=== PATIENT | female | born 1975 | race Caucasian/White ===

== ENCOUNTER 2016-10-24 14:25 | Emergency (ER) | payer BC ==
[~2016-10-24] VITALS: Ht 170.2 cm; Wt 170.9 kg
[~2016-10-24 14:25] MED LIST: ACETADOTE IV; ADVAIR 250/501 DISK IH; Advair 250/50 Diskus IH; Aleve PO; BROVANA NEB; BROVANA15 MCG/2 M IH; CYCLOBENZAPRINE10 MG PO; Cardizem CD,Cartia X PO; Ceftin PO; DALIRESP500 MCG PO; EPIPEN ADU0.3 MG/0.3 IM; KETOCONAZOLE60 GM TP; METOLAZONE2.5 MG PO; METOPROLOL SUCC25 MG PO; Mucomyst,Mucosol 20% IH; NASONEX17 GM BOTH NARES; OMEPRAZOLE20 M2 PO; PEPCID40 MG PO; POTASSIUM CHLO20 ME1 PO; POTASSIUM CHLO20 ME2 PO; PREDNISONE10 MG PO; PROAIR HFA8.5 GM IH; PROBIOTIC1 EAC1 PO; PROVENTIL,2.5 MG/3 M IH; PriLOSEC PO; Proair HFA IH; SINGULAIR10 MG PO; SPIRIVA1 INHALATI IH; SPIRONOLACTONE50 MG PO; THERAGRAN1 TABLET PO; TORSEMIDE10 MG PO; TUDORZA PRESS400 MCG IH; TYLENOL EXTRA500 MG PO; Tussionex Pennkineti PO; Tylenol PM PO; Tylenol Regular Stre PO; XOPENEX1.25 MG/3 IH; ZYRTEC10 M2 PO; ZYRTEC10 M3 PO; ZZZQUIL50 MG/30 M PO; ZyrTEC PO; [UNRECOGNIZED DRUG - OTHER] PO; predniSONE PO
[2016-10-24] MEDS ORDERED: FLEXERIL10 MG PO (16:55)
[2016-10-24] MEDS ORDERED: PREDNISONE10 MG PO (16:55)
[2016-10-24] MEDS ORDERED: ROBITUSSIN NIG118 ML PO (16:55)
[2016-10-24] MEDS ORDERED: TESSALON200 MG PO (16:55)
[2016-10-24] MEDS ORDERED: MUCUS ER600 MG PO (16:55)
[2016-10-24 18:37] VITALS: BP 151/87
== END 2016-10-24 18:37 | disposition home or self-care (01) ==
LOC: EME 14:25
DX: J45.901 Unspecified asthma with (acute) exacerbation (principal); J06.9 Acute upper respiratory infection, unspecified; J30.2 Other seasonal allergic rhinitis; J44.9 Chronic obstructive pulmonary disease, unspecified; G47.30 Sleep apnea, unspecified; K21.9 Gastro-esophageal reflux disease without esophagitis
CPT/HCPCS: 71020; 94640; 99281; 99284; J7512

== ENCOUNTER 2017-02-23 09:13 | Emergency (ER) | payer BC ==
[~2017-02-23] VITALS: Ht 170.2 cm; Wt 175.0 kg
[~2017-02-23 09:13] MED LIST changes: +FLEXERIL10 MG PO; +MUCUS ER600 MG PO; +ROBITUSSIN NIG118 ML PO; +TESSALON200 MG PO
[2017-02-23 13:54] LABS: EOSINOPHIL (%) 0.3 % (0-5); HEMATOCRIT 39.6 % (36.0-46.0); IMMATURE GRANULOCYTE (%) 0.4 % (0.0-0.7); INSTRUMENT ABS NEUTROPHIL CT 8.1 K/uL; LYMPHOCYTE COUNT 1.4 K/uL (1.0-2.8); MCH 30.7 PG (29.0-34.0); MCHC 32.3 G/DL (30.0-36.0); MEAN PLAT.VOLUME 9.9 uM^3 (9.5-12.4); MONOCYTE (%) 6.1 % (3-12); MONOCYTE COUNT 0.6 K/uL (0-0.8); NEUTROPHIL (%) 79.2 % (45-76); NEUTROPHIL COUNT 8.1 K/uL (1.8-6.4); PLATELET COUNT 233 K/uL (156-360); RBC DIS.WIDTH-CV 14.7 % (11.8-14.6); RBC DIS.WIDTH-SD 51.3 % (39-53); RED BLOOD COUNT 4.17 M/uL (3.80-5.20); WHITE BLOOD COUNT 10.2 K/uL (4.1-10.2)
[2017-02-23 14:03] LABS: CHLORIDE 100 mEq/L (99-109); POTASSIUM 3.9 mEq/L (3.7-5.4); SODIUM 136 mEq/L (136-147)
[2017-02-23 14:05] LABS: GLUCOSE 98 mg/dL (70-99)
[2017-02-23 14:06] LABS: ANION GAP 9 MEQ/L (2-14)
[2017-02-23 14:07] LABS: TOTAL BILIRUBIN 0.6 mg/dL (0.0-1.0)
[2017-02-23 14:08] LABS: ALKALINE PHOSPHATASE 52 IU/L (3-129)
[2017-02-23 14:09] LABS: GFR ESTIMATE (CALCULATED) > 59 mL/min/
[2017-02-23 14:10] LABS: UREA NITROGEN (BUN) 19 mg/dL (9-23)
[2017-02-23] MEDS ORDERED: NAPROXEN500 MG PO (14:59)
[2017-02-23 15:32] VITALS: BP 143/83
== END 2017-02-23 15:52 | disposition home or self-care (01) ==
LOC: EME 09:13
PROVIDERS: Physician Assistant
DX: S93.402A Sprain of unspecified ligament of left ankle, initial encounter (principal); S93.602A Unspecified sprain of left foot, initial encounter; J44.9 Chronic obstructive pulmonary disease, unspecified; K21.9 Gastro-esophageal reflux disease without esophagitis; G47.30 Sleep apnea, unspecified; Z88.8 Allergy status to other drugs, medicaments and biological substances
CPT/HCPCS: 73590; 73610; 73630; 80053; 83605; 85025; 93971; 99281; 99284; J1885